=== PATIENT | male | born 1990 | race Caucasian/White ===

== ENCOUNTER 2021-09-07 19:26 | Emergency (ER) | payer SELFPAY ==
--- NOTE | 2021-09-07 19:52 | ECG_ITS ---
[facility] Test Date: 2021-09-07 Pat Name: Mark Estrada Department: Room: Gender: Male [employer]: : 1990 Requested By: Clotilde Zamarripa Order Number: [id number] Ronel MD: Christie Jacques M.D. Measurements Intervals [place] Rate: 96 P: 77 KS: 170 QRS: 66 QRSD: 87 T: 79 QT: 342 QTc: 434 Interpretive Statements SINUS RHYTHM EARLY REPOLARIZATION [ST ELEVATION WITH NORMALLY INFLECTED T-WAVE] Compared to ECG 09/26/2018 01:29:00 Sinus tachycardia no longer present ST (T wave) deviation no longer present Electronically Signed On 09-07-2021 23:57:11 [facility] by Christie Jacques M.D. [id number]
[2021-09-07 20:17] VITALS: BP 96/66; PULSE 97; RESP 18; TEMP 36.7; O2SAT 96; BMI 28.8
[2021-09-07 20:30] LABS: Basophils # 0.1 10^3/uL (0.0-0.1); Basophils % 0.6 %; Eosinophils % 0.4 %; Hematocrit 42.1 % (42.0-52.0); Hemoglobin 14.9 g/dL (11.7-16.6); Lymphocytes # 3.1 10^3/uL (0.8-4.8); Lymphocytes % 37.3 %; Mean Corpuscular HGB Conc 35.4 g/dL (30.0-36.0); Mean Corpuscular Hemoglobin 33.1 pg (28.0-34.0); Mean Corpuscular Volume 93.6 fl (80-94); Monocytes # 0.3 10^3/uL (0.2-0.9); Monocytes % 3.8 %; Neutrophils # 4.85 10^3/uL (1.8-7.7); Neutrophils % 57.7 %; Nucleated Red Blood Cells % 0 %; Platelet Count 258 10^3/cmm (130-400); Red Cell Distribution Width 12.3 % (12.1-15.1); White Blood Count 8.4 10^3/uL (4.0-10.0)
--- NOTE | 2021-09-07 20:39 | ED_ITS ---
HPI - Overdose General: Chief Complaint: Overdose Stated Complaint: OVERDOSE Time Seen by Provider: 09/07/21 20:20 History of Present Illness: HPI Narrative: Mr. Estrada is a 30-year-old gentleman without significant medical or surgical history who presents emergency department by air ambulance for evaluation of possible overdose. He reports a history of tobacco use and drinking approximately 1.5 pints of hard alcohol every other day or so. Today he was d rinking and got into an argument with his family. Apparently he locked himself in a bathroom and when he got thirsty he drank a number of cologne and perfume bottles. He adamantly denies suicidal or homicidal ideation. He denies that any of these work cleaning products. He currently denies any medical complaints. He is calm and cooperative. No difficulty breathing or difficulty swallowing. No other changes in health, exacerbating, relieving factors identified. Intent: other Context: Accidental Overdose: other Review of Systems General: Reports: 10 or more systems reviewed and unremarkable except in HPI and below PFSH ED PFSH: Medical History (Updated 09/07/21 @ 22:51 by Gio Lynch MD) Psychiatric care Physical Exam Const: COMMON NORMALS: alert GENERAL APPEARANCE: cooperative and well developed HENMT: COMMON NORMALS: normocephalic and atraumatic HEAD & SCALP: normocephalic and atraumatic THROAT: posterior oropharynx normal Eye: COMMON NORMALS: conjunctivae normal CONJUNCTIVA: Yes conjunctivae normal SCLERA: sclerae normal Neck/C-Spine: COMMON NORMALS: supple GENERAL: Yes trachea midline Resp: COMMON NORMALS: normal respiratory effort EFFORT & INSPECTION: Yes able to speak in complete sentences Cardio: COMMON NORMALS: regular rate and regular rhythm RATE: regular rate RHYTHM: regular rhythm GI: COMMON NORMALS: Soft to palpation PALPATION: Yes Soft to palpation and No Tenderness to palpation present (GI) PERCUSSION: normal to percussion Extremity: GENERAL: Yes normal exam except as noted and No edema Neuro: COMMON NORMALS: moves all extremities SENSORIUM/ORIENTATION: Yes alert and No Orientation impaired OTHER: Appears clinically intoxicated consistent with reported history of alcohol use Psych: COMMON NORMALS: mental status grossly normal, Normal thought process present, cooperative, denies hallucinations, denies homicidal ideation and denies suicidal ideation THOUGHT PROCESS: Normal thought process present Course ED course: - Patient was seen and evaluated by me at bedside - Patient placed on cardiac monitors, IV access obtained - Initial evaluation notable for nontoxic appearance, no distress The patient has benign abdominal exam. No appreciable abnormality in the oropharynx. He does appear mildly intoxicated consistent with reported alcohol use - Labs notable for no significant hematologic abnormality. Metabolic evidence o f mild dehydration. IV fluids ordered. Alcohol level is elevated with otherwise negative toxic ingestions. -Imaging not warranted given exam findings - Upon serial reexamination after treatment the patient was improved. Patient appears clinically sober, he can ambulate without difficulty, speech is normal, he tolerated p.o. intake. Reassessment of abdomen continues to be benign. - Based on patient history, evaluation, labs, and imaging as interpreted the most likely cause of the patient's condition is alcohol intoxication with ingestion of other substance without intention of self-harm and without suicidal or homicidal ideation - The results of ED evaluation were discussed with the patient including prescriptions and/or symptomatic cares (if applicable) including appropriate and responsible use, followup plan, and return precautions. The patient verbalized understanding and felt safe for discharge. - Patient discharged in satisfactory condition. Note: Click bubbles or prepopulated muro in note writing are used for assistance with data collection and billing and are inherently more limited than narrative and other text portions of this note. Please use narrative for additional clinical history and defer to narrative/free test for any case of contradictory information. If information appears in only free text or click bubble it should be considered present or absent as reported. Please contact note writer technical publications for clarifications of clinical information or contradictory information. MDM is a brief summary, contradictory or erroneous seeming information should be clarified and full note should be reviewed. Vital Signs: Vital signs: Vital Signs Temperature 98.1 F 09/07/21 20:17 Pulse Rate 97 09/07/21 20:17 Respiratory Rate 18 09/07/21 20:17 Blood Pressure 96/66 09/07/21 20:17 Pulse Oximetry 96 09/07/21 20:17 MDM - Overdose MDM Narrative Medical decision making narrative: 30-year-old gentleman with history of alcohol abuse presenting after family disagreement where he locked himself in the bathroom and apparently drank a bottle of bath oil, perfume, and something else in the cabinet. Exam, other than alcohol intoxication, is unremarkable. Patient adamantly denies suicidal or homicidal ideation. He adamantly denies ingestion of any home care administrator or other toxic substances. After period of observation the patient remains without distress and nontoxic in appearance. Alcohol intoxication resolved and patient was clinically sober upon discharge. Medical Records Attestation: I reviewed the patient's medical records. Lab Data Attestation: I reviewed the patient's lab results. Result diagrams: 09/07/21 20:23 09/07/21 20:23 Labs: Lab Results 09/07/21 09/07/21 09/07/21 20:23 20:23 20:34 WBC 8.4 10^3/uL 10^3/uL (4.0-10.0) RBC 4.50 10^6/uL 10^6/uL (4.1-5.3) Hgb 14.9 g/dL g/dL (11.7-16.6) Hct 42.1 % % (42.0-52.0) MCV 93.6 fl fl (80-94) MCH 33.1 pg pg (28.0-34.0) MCHC 35.4 g/dL g/dL (30.0-36.0) RDW 12.3 % % (12.1-15.1) Plt Count 258 10^3/cmm 10^3/cmm (130-400) MPV 10.0 fL fL (7.4-10.4) Neut % (Auto) 57.7 % % Lymph % (Auto) 37.3 % % [place] % (Auto) 3.8 % % Eos % (Auto) 0.4 % % Baso % (Auto) 0.6 % % Neut # (Auto) 4.85 10^3/uL 10^3/uL (1.8-7.7) Lymph # (Auto) 3.1 10^3/uL 10^3/uL (0.8-4.8) [place] # (Auto) 0.3 10^3/uL 10^3/uL (0.2-0.9) Eos # (Auto) 0.0 10^3/uL 10^3/uL (0.0-0.8) Baso # (Auto) 0.1 10^3/uL 10^3/uL (0.0-0.1) Nucleated RBC % (auto) 0 % % Nucleated RBCs # 0.0 /100WBC /100WBC Sodium 143 mmol/L mmol/L (136-145) Potassium 3.7 mmol/L mmol/L (3.5-5.1) Chloride 106 mmol/L mmol/L (98-107) Carbon Dioxide 21 mmol/L L mmol/L (22-29) Anion Gap 19.7 H (5-19) BUN 5 mg/dL L mg/dL (6-20) Creatinine 0.6 mg/dL L mg/dL (0.7-1.2) GFR Calculation 160.4 mL/min H mL/min (90-130) Glucose 111 mg/dL mg/dL (65-115) Calculated Osmolality 294 mOsm/kg mOsm/kg (285-295) Calcium 8.5 mg/dL mg/dL (8.5-10.5) Total Bilirubin 0.2 mg/dL mg/dL (0.15-1.2) AST 10 U/L U/L (0-40) ALT 7 U/L U/L (0-41) Alkaline Phosphatase 86 IU/L IU/L (40-130) Total Protein 6.5 g/dL L g/dL (6.6-8.7) Albumin 4.2 g/dL g/dL (3.5-5.2) Globulin 2.3 g/dL g/dL (1.3-4.6) Salicylates < 0.3 mg/dL L mg/dL (3-10) Urine Opiates Screen Negative ng/mL ng/mL (Negative) Acetaminophen < 5.0 ug/mL L ug/mL (10-30) Ur Barbiturates Screen Negative ng/mL ng/mL (Negative) Ur Phencyclidine Scrn Negative ng/mL ng/mL (Negative) Ur Amphetamines Screen Negative ng/mL ng/mL (Negative) U Benzodiazepines Scrn Negative ng/mL ng/mL (Negative) Urine Cocaine Screen Negative ng/mL ng/mL (Negative) U Marijuana (THC) Screen Negative ng/mL ng/mL (Negative) Ethyl Alcohol 277 mg/dL H mg/dL (0-10) Discharge Plan Discharge Patient Disposition: Home Clinical Impression: Alcohol abuse, Alcohol intoxication, Ingestion of substance Condition: Stable Prescriptions: No Action aripiprazole [Abilify] 5 mg tablet 5 mg PO .qhs 30 Days Qty: 30 3RF mirtazapine 15 mg tablet 15 mg PO .qhs 30 Days Qty: 30 3RF Discharge Orders: Discharge ED (Routine); Ordered 09/07/21 Ordered By: Gio Lynch Discharge Diet: Usual diet Discharge Activity: Resume usual activity Patient Instructions: Abuse of Alcohol (ED) Activity Restrictions/Additional Instructions: Thank you for visiting the emergency department. You were seen and evaluated for ingestion of unknown substances in addition to alcohol. Given that we do not know the ingredients of these substances it is difficult to determine the exact effect. Based on physical examination, vital signs, and laboratory studies you do not require further inpatient management at this time. Please stop abusing alcohol and do not ingest substances not meant to be eaten or drank again. Given your alcohol level you should not drive or operate heavy machinery or perform other dangerous tasks until you are sober in the morning. Please follow-up with your primary care provider. Return to a emergency department for severe abdominal pain, inability to tolerate oral intake, nausea and vomiting, any blood in your vomit or stool, s hortness of breath, chest pain, thoughts of hurting herself or others, hallucinations, or anything else that you are concerned about and feel needs emergency department evaluation. Coding Level of Care Code ED Wastewater Analyst Lab Analyst for Ariana Roach
[2021-09-07 20:57] LABS: Amphetamines Screen Urine Negative (Negative); Barbiturates Screen Urine Negative (Negative); Benzodiazepines Screen Urine Negative (Negative); Cocaine Screen Urine Negative (Negative); Opiate Screen Urine Negative (Negative); PCP Screen Urine Negative (Negative); THC Screen Urine Negative (Negative)
[2021-09-07 20:58] LABS: Alanine Aminotransferase 7 U/L (0-41); Albumin Level 4.2 g/dL (3.5-5.2); Alcohol Level 277 mg/dL (0-10); Alkaline Phosphatase 86 IU/L (40-130); Anion Gap 19.7 (5-19); Aspartate Amino Transferase 10 U/L (0-40); Blood Urea Nitrogen 5 mg/dL (6-20); Calcium 8.5 mg/dL (8.5-10.5); Carbon Dioxide 21 mmol/L (22-29); Chloride 106 mmol/L (98-107); Globulin 2.3 g/dL (1.3-4.6); Glomerular Filtration Rate 160.4 mL/min (90-130); Glucose 111 mg/dL (65-115); Osmolality Calculated 294 mOsm/kg (285-295); Potassium 3.7 mmol/L (3.5-5.1); Sodium 143 mmol/L (136-145); Total Bilirubin 0.2 mg/dL (0.15-1.2); Total Protein 6.5 g/dL (6.6-8.7)
[2021-09-07 20:59] LABS: Acetaminophen < 5.0 ug/mL (10-30); Salicylate < 0.3 mg/dL (3-10)
[2021-09-07] MEDS: sodium chloride 0.9% 1,000 ML 999 ML IV (21:13)
== END 2021-09-07 23:16 | disposition home or self-care (01) ==
PROVIDERS: Emergency Medicine; Emergency Provider Emergency Medicine
DX: F10.129 Alcohol abuse with intoxication, unspecified (principal); Y90.8 Blood alcohol level of 240 mg/100 ml or more; T65.891A Toxic effect of other specified substances, accidental (unintentional), initial encounter
CPT/HCPCS: 80053; 80306; 80307; 85025; 93005; 96360; 99283; J7030